=== PATIENT | male | born 1980 | race Caucasian/White ===

== ENCOUNTER 2025-06-10 00:40 | Day surgery (SDC) | payer OTHER, SELFPAY ==
[2025-06-04 10:32] VITALS: BMI 40.0
[2025-06-10 10:04] VITALS: BP 190/111; PULSE 70; RESP 18; TEMP 36.9; O2SAT 99
[2025-06-10] MEDS: LACTATED RINGERS 1,000 ML 150 ML IV CONT (10:16)
--- NOTE | 2025-06-10 10:33 | P.PNAN_ITS ---
Anes - Initial Pre Proc Eval Procedure: Operation Date: 06/10/25 11:30 Proposed Procedures p Screening Colonoscopy - Ángel Hernandez MD Date/Time: 06/10/25 10:33 Surgeon: Ángel Hernandez MD Pre Op Diagnosis: Screening Patient Data Age: 44 Gender: M Height: 1.83 m Weight: 127.9 kg Last Vital Signs Temp 36.9 C 06/10/25 10:04 Pulse 70 06/10/25 10:04 Resp 18 06/10/25 10:04 BP 190/111 H 06/10/25 10:04 Pulse Ox 99 06/10/25 10:04 O2 Del Method Room Air 06/10/25 10:04 Allergies Allergy/AdvReac Type Severity Reaction Status Date / Time No Known Drug Allergies Allergy Unknown Verified 01/16/17 13:22 Home Medications ?Medication ?Instructions ?Recorded ?Confirmed ?Type icosapent ethyl 1 gram capsule 2 g PO .q12hr 06/04/25 06/10/25 History indapamide 2.5 mg tablet 2.5 mg PO DAILY 06/04/25 History ramipril 10 mg capsule 10 mg PO DAILY 06/04/2505/29 History rosuvastatin 40 mg tablet 40 mg PO DAILY 06/04/2505/29 History Patient hx anesthesia problems: none Family hx anesthesia problems: none Results Review: All pre-operative results and documents have been reviewed as part of the pre- operative evaluation. FOR[facility], [facility] Past Medical History Medical History (Updated 06/10/25 @ 10:34 by Gómez Barnett MD) Hyperlipidemia HTN (hypertension) [place] on CPAP Surgical History Surgical History (Updated 06/10/25 @ 10:34 by Gómez Barnett MD) H/O arthroscopic knee surgery H/O hernia repair Social History Social History Alcohol use details: socially on weekend Substance use: never Living arrangements: with family Spiritual care concerns: No Anes - Eval Final PreProcedure Day of Procedure 06/10/25 10:33 Patient weight: obese Heart: regular rate and rhythm Lungs: clear to auscultation Airway: Mallampati scale class II Neurological: alert and oriented Last oral intake: >/= 8 hours ASA classification: III Emergent: no Anesthetic plan: proceed Anesthesia type and monitoring: general GIVS and standard monitoring Results Review: All pre-operative results and documents have been reviewed as part of the pre- operative evaluation. Informed Consent: The patient's anesthetic plan and its attendant risks and benefits were discussed with the patient/family/POA. Questions were solicited and answers provided to the satisfaction of the patient/family/POA.
--- NOTE | 2025-06-10 10:49 | PM.HPGS ---
History of Present Illness History of Present Illness Consent: Risks, benefits, and alternatives have been discussed and questions answered. Patient agrees to proceed with procedure. Chief complaint: Screening Narrative: Jass Patel is a 44 year old male here for first screening colonoscopy Review of Systems Review of Systems: All systems reviewed & are unremarkable except as noted in HPI and below PMFSH Past Medical History Medical History (Updated 06/10/25 @ 10:49 by Ángel Hernandez MD) Colon cancer screening Hyperlipidemia HTN (hypertension) [place] on CPAP Surgical History Surgical History (Updated 06/10/25 @ 10:34 by Gómez Barnett MD) H/O arthroscopic knee surgery H/O hernia repair Social History Social History Alcohol use details: socially on weekend Substance use: never Living arrangements: with family Spiritual care concerns: No Meds Home Medications and Allergies Home Medications ?Medication ?Instructions ?Recorded ?Confirmed ?Type icosapent ethyl 1 gram capsule 2 g PO .q12hr 06/04/25 06/10/25 History indapamide 2.5 mg tablet 2.5 mg PO DAILY 06/04/25 06/10/25 History ramipril 10 mg capsule 10 mg PO DAILY 06/04/25 06/10/25 History rosuvastatin 40 mg tablet 40 mg PO DAILY 06/04/25 06/10/25 History Allergies Allergy/AdvReac Type Severity Reaction Status Date / Time No Known Drug Allergies Allergy Unknown Verified 01/16/17 13:22 Vital Signs Vital Signs - 24 hr 06/10/25 10:04 Temperature 98.5 F Pulse Rate 70 Respiratory Rate 18 Blood Pressure 190/111 H Pulse Oximetry 99 Oxygen Delivery Room Air Exam Const: General: comfortable and no acute distress HENMT: Face/Nose/Sinus: Normal nares present Eyes: General: appearance normal, both eyes and all related structures Neck: Neck: no JVD Resp: Auscultation: clear to auscultation bilaterally Cardio: Rate: regular rate Rhythm: regular rhythm GI: Inspection: non-distended GI Palp: Yes Soft to palpation Skin: General skin exam: normal color Extrem: General: normal to inspection Psych: Mental Status: mental status grossly normal Assessment and Plan Assessment and plan (1) Colon cancer screening: Code(s): Z12.11 - Encounter for screening for malignant neoplasm of colon Status: Acute Assessment and Plan: colonoscopy
--- NOTE | 2025-06-10 10:59 | S_PTH ---
PATIENT: Jass Patel LOC: [facility]#:[id number] AGE/SX: 44/M ROOM: RE06/10/[address]: Ángel Hernandez MD : 1980 BED: DIS: 06/10/2025 SPEC #: [id number] RECD: 06/10/25 11:34 STATUS: RUI REThuy #: [id number] DAE: 06/10/25 10:[address]: Ángel Hernandez DEPT: [facility] Surgical RECD BY: Lucero Roberts ENTERED: 06/10/25 11:34 SP TYPE: Surgical OTHR DR: Christian GaffneyMD Tissues: A - Colon Polypectomy Procedures: Hematoxylin and Eosin Stain Gross and Microscopic Level 4
[2025-06-10 11:00] VITALS: BP 168/89; PULSE 58; RESP 23; O2SAT 97
[2025-06-10 11:10] VITALS: BP 159/97; PULSE 54; RESP 23; O2SAT 95
[2025-06-10 11:20] VITALS: BP 159/100; PULSE 53; RESP 21; O2SAT 95
== END 2025-06-10 11:27 | disposition home or self-care (01) ==
PROVIDERS: PCP Internal Medicine; Referring Provider Internal Medicine; Visit Provider Internal Medicine Gastroenterology
PROC: 0DJD8ZZ Inspection of Lower Intestinal Tract, Via Natural or Artificial Opening Endoscopic (ICD-10-PCS; CPT 45378; principal; 2025-06-10 11:30)
DX: Z12.11 Encounter for screening for malignant neoplasm of colon (principal); D12.3 Benign neoplasm of transverse colon; K57.30 Diverticulosis of large intestine without perforation or abscess without bleeding; E78.5 Hyperlipidemia, unspecified; I10 Essential (primary) hypertension; G47.33 Obstructive sleep apnea (adult) (pediatric); E66.9 Obesity, unspecified; Z68.38 Body mass index [BMI] 38.0-38.9, adult; Z99.89 Dependence on other enabling machines and devices; Z98.890 Other specified postprocedural states
CPT/HCPCS: 45385; 88305; J2704; J7120